=== PATIENT | female | born 1945 | race Two or more races ===

== ENCOUNTER 2022-07-24 21:51 | Emergency (ER) | payer OTHER ==
[~2022-07-24] VITALS: Ht 160 cm; Wt 86.2 kg
--- NOTE | 2022-07-24 22:05 | NUR ---
[facility] 8 FROM HOME FOR C/O CP X 3 HOURS; PAIN LEVEL 7/10. DIAGNOSED W/ PNA AT [facility] YESTERDAY, ON PO ATB. PT A/OX4. TOLERATING R/A WITH SOB AT 98%. CONNECTED PT TO POX AND MONITOR. SAFETY MEASURES IN PLACE.
--- NOTE | 2022-07-24 22:28 | NUR ---
Hernesto garcia in EDM - 07/24/22 at 2308 by ANUP RT AT PT'S BEDSIDE FOR BREATHING TX.
--- NOTE | 2022-07-24 22:32 | NUR ---
R JUAN A #20G S/L BLOOD COLLECTED AND SENT TO LAB
[2022-07-24 22:40] LABS: BASOPHILS % (AUTO) 0.6 % (0.0-2.0); EOSINOPHILS % (AUTO) 2.5 % (0.0-6.0); HEMATOCRIT 40 % (33-45); HEMOGLOBIN 13.2 g/dL (11.5-14.8); LYMPHOCYTES # (AUTO) 2.2 K/uL (0.8-4.8); MEAN CORPUSCULAR HGB CONC 33 g/dl (31.0-36.0); MEAN CORPUSCULAR VOLUME 88 fL (82-100); MONOCYTES # (AUTO) 0.8 K/uL (0.1-1.30); MONOCYTES % (AUTO) 10.7 % (2.0-12.0); NEUTROPHILS # (AUTO) 4.3 K/uL (1.8-8.9); NEUTROPHILS % (AUTO) 57.2 % (43.0-81.0); PLATELET COUNT (AUTO) 188 K/uL (150-450); RED BLOOD CELL COUNT(AUTO) 4.58 MIL/uL (4.0-5.2); WHITE BLOOD COUNT (AUTO) 7.5 K/uL (4.3-11.0)
[2022-07-24 22:47] LABS: CALCIUM, SERUM 8.5 mg/dL (8.5-10.1); CARBON DIOXIDE 31 mmol/L (21-32); CHLORIDE 105 mmol/L (98-107); CREATININE 0.7 mg/dL (0.6-1.3); GLUCOSE 108 mg/dL (74-106); POTASSIUM 3.4 mmol/L (3.5-5.1); SODIUM SERUM 143 mmol/L (136-145); UREA NITROGEN, BLOOD 6 mg/dL (7-18)
--- NOTE | 2022-07-24 22:47 | NUR ---
FRAME FIXER AT PT'S BEDSIDE
[2022-07-24] MEDS ORDERED: MORPHINE SULFATE INJ 2 MG/ML DISP.SYRIN ONE (23:21)
[2022-07-24] MEDS ORDERED: ONDANSETRON HCL/PF 4 MG/2 ML VIAL ONE (23:21)
[2022-07-24] MEDS ORDERED: MORPHINE SULFATE INJ 2 MG/ML DISP.SYRIN IV ONE (23:30)
[2022-07-24] MEDS ORDERED: ONDANSETRON HCL/PF - ER 4 MG/2 ML VIAL IV ONE (23:30)
--- NOTE | 2022-07-24 23:30 | NUR ---
MARIO MOSES POWER OF [employer]ERNEY AND HEALTHCARE DIRECTIVE EXEC. [phone]
--- NOTE | 2022-07-24 23:45 | NUR ---
R HAND #20 INFILTRATED. INSERTED R WRIST #22G S/L IV
--- NOTE | 2022-07-25 00:34 | NUR ---
CALLED [facility] AND PAGED ON-CALL
--- NOTE | 2022-07-25 00:45 | NUR ---
DR. AIDEN ONTIVEROS ON PHONE CALL DR. JESUS ONTIVEROS MERCADO
--- NOTE | 2022-07-25 02:09 | NUR ---
[facility] [phone]
--- NOTE | 2022-07-25 02:14 | NUR ---
CALLED [facility] AND REQUESTED TRANSPORTATION BACK HOME
--- NOTE | 2022-07-25 02:32 | NUR ---
[facility] ETA: [id number]
--- NOTE | 2022-07-25 03:07 | NUR ---
[facility] AT PT'S BEDSIDE FOR DC HOME
[2022-07-25 03:23] VITALS: BP 103/65
== END 2022-07-25 03:23 | disposition home or self-care (01) ==
LOC: ER 21:54
DX: R07.89 Other chest pain (principal); E03.9 Hypothyroidism, unspecified; F17.200 Nicotine dependence, unspecified, uncomplicated; Z88.2 Allergy status to sulfonamides; Z88.8 Allergy status to other drugs, medicaments and biological substances; Z60.2 Problems related to living alone
CPT/HCPCS: 99285; 96374; 71045; 96375; 93005; 85025; 80048; 36415 ×2; 84484 ×2; J2405 ×2; J2270